=== PATIENT | male | born 1945 | race Caucasian/White ===

== ENCOUNTER 2020-11-22 09:53 | Emergency (ER) | payer OTHER ==
[~2020-11-22] VITALS: Ht 170.2 cm; Wt 108.9 kg
[2020-11-22] MEDS ORDERED: TENORMIN50 M1 (10:24)
[2020-11-22] MEDS ORDERED: ZESTRIL40 M1 (10:24)
== END 2020-11-22 14:21 | disposition home or self-care (01) ==
LOC: ER 09:53
DX: N23 Unspecified renal colic (principal)

== ENCOUNTER 2020-11-23 16:13 | Emergency (ER) | payer OTHER ==
[~2020-11-23] VITALS: Ht 170.2 cm; Wt 108.9 kg
[~2020-11-23 16:13] MED LIST: TENORMIN50 M1; ZESTRIL40 M1
== END 2020-11-23 20:11 | disposition home or self-care (01) ==
LOC: ER 16:13
DX: R10.13 Epigastric pain (principal)